=== PATIENT | male | born 1950 | race Caucasian/White ===

== ENCOUNTER 2022-12-26 04:51 | Day surgery (SDC) | payer OTHER, MEDICARE ==
[2022-12-20 14:14] VITALS: BMI 45.7
[2022-12-26 08:25] VITALS: RESP 18
[2022-12-26 10:55] VITALS: BP 118/97; PULSE 68; TEMP 98
== END 2022-12-26 11:10 | disposition home or self-care (01) ==
LOC: JASU-ENDO 04:51
PROVIDERS: ATTEND Internal Medicine Gastroenterology
PROC: 0DBK8ZX Excision of Ascending Colon, Via Natural or Artificial Opening Endoscopic, Diagnostic (ICD-10-PCS; principal; 2022-12-26 09:15)
DX: Z12.11 Encounter for screening for malignant neoplasm of colon (principal); D12.2 Benign neoplasm of ascending colon; K64.8 Other hemorrhoids; I10 Essential (primary) hypertension; E11.9 Type 2 diabetes mellitus without complications
CPT/HCPCS: 36415; 82728; 83540; 83550; 86704; 86708; 86803; 87340; 87517; 88305-TC